=== PATIENT | female | born 1950 | race Caucasian/White ===

== ENCOUNTER 2019-07-08 20:55 | Emergency (ER) | payer MEDICARE ==
[~2019-07-08] VITALS: Ht 162 cm; Wt 74.8 kg
[2019-07-08 21:44] VITALS: BP 105/66
[2019-07-11] MEDS ORDERED: HEParin 1000 UNIT/ML (10ML VIAL) FOR BOLUS IV ONE (06:20)
[2019-07-11] MEDS ORDERED: morphine INJ 10 MG/ML 1ML (SYR OR VIAL) IVP STA (06:20)
[2019-07-11] MEDS ORDERED: HEParin DRIP 25000 UNIT/500ML 500 ML IV ONE (06:20)
--- NOTE | 2019-07-11 06:26 | ED Chest Pain ---
General Chief Complaint: Chest Pain Stated Complaint: CHEST PAIN Nursing Triage Note: PT COMPLAINING OF CHEST PAIN, LEFT JAW PAIN AND BILATERAL ARM HEAVINESS Nursing Sepsis Screen: No Definite Risk Source: patient, family History of Present Illness Date Seen by Provider: Jul 08, 2019 Time Seen by Provider: 20:55 Initial Comments 68-year-old female presenting with complaints of burning pain in both sides her chest going into her arms and into the left side of her jaw. This started around 8 PM or 8:15 PM tonight. She felt that it was indigestion but when it wasn't getting better she came into the emergency department. She denies taking any medications. She states that she would take some vitamins but that was all. She follows with Melissa Conway out of the [facility] clinic but used to follow with Dr. Jules. She had a similar episode about a week or 2 ago and it did get better with taking Tums. She denies any known history of cardiac disease. She does not have any known heart problems per family members either. Allergies and Home Medications Allergies Coded Allergies: No Known Drug Allergies (Unverified , 07/10/19) Patient Home Medication List Home Medication List Reviewed: Yes Review of Systems Review of Systems Constitutional: No chills, No fever EENTM: No Symptoms Reported Respiratory: Shortness of Air Cardiovascular: See HPI, Chest Pain, Lightheadedness Gastrointestinal: Denies Nausea Genitourinary: No Symptoms Reported Musculoskeletal: see HPI, other (pain and weakness going into both arms and her left jaw.) Skin: no symptoms reported Psychiatric/Neurological: No Symptoms Reported Past Poeecas-Wpadll-Rgvuku Hx Past Med/Social Hx: Reviewed Nursing Past Med/Soc Hx Patient Social History Alcohol Use: Denies Use Recreational Drug Use: No Smoking Status: Current Everyday Smoker Type Used: Cigarettes 2nd Hand Smoke Exposure: No Recent Foreign Travel: No Contact w/Someone Who Travel: No Recent Infectious Disease Expo: No Recent Hopitalizations: No Physical Abuse: No Sexual Abuse: No Mistreated: No Past Medical History Surgeries: Yes Hysterectomy Respiratory: Yes COPD Cardiac: No Neurological: No Genitourinary: No Gastrointestinal: No Musculoskeletal: No Endocrine: No HEENT: No Cancer: No Psychosocial: No Integumentary: No Blood Disorders: No Physical Exam Vital Signs Vital Signs - First Documented 07/08/19 20:55 Temp 36.2 Pulse 54 Resp 18 B/P (MAP) 144/81 (102) Pulse Ox 99 O2 Delivery Room Air Capillary Refill : Less Than 3 Seconds Height, Weight, BMI Height: '" Weight: lbs. oz. kg; 28.00 BMI Method: General Appearance: WD/WN, Mild Distress HEENT: Normal ENT Inspection, Pharynx Normal Neck: Normal Inspection, Non Tender, Supple; No Carotid Bruit Respiratory: Chest Non Tender, Lungs Clear, Normal Breath Sounds, No Accessory Muscle Use, No Respiratory Distress Cardiovascular: Regular Rate, Rhythm, Normal Peripheral Pulses Gastrointestinal: No Pulsatile Mass, Non Tender, Soft Extremity: Normal Range of Motion, Non Tender, No Calf Tenderness, No Pedal Edema Neurologic/Psychiatric: Alert, Oriented x3, No Motor/Sensory Deficits Skin: Cool, Diaphoresis, Pallor Progress/Results/Core Measures Results/Orders My Orders Orders - LEIGH ANN MARCOS MD Monitor-Rhythm Ecg Trace Only (07/10/19 21:47) Ekg Tracing (07/10/19 21:47) Ed Iv/Invasive Line Start (07/10/19 21:47) Morphine Injection (Morphine Injection (07/11/19 06:20) Aspirin Chewable Tablet (Baby Aspirin Ch (07/11/19 06:30) Ns Iv 1000 Ml (Sodium Chloride 0.9%) (07/11/19 06:30) Heparin Drip 38908 Unit/500ml (Heparin (07/11/19 06:20) Heparin (Bolus Per Protocol) (Heparin (B (07/11/19 06:20) Vital Signs/I&O 07/08/19 07/08/19 20:55 21:44 Temp 36.2 Pulse 54 60 Resp 18 16 B/P (MAP) 144/81 (102) 105/66 Pulse Ox 99 100 O2 Delivery Room Air Room Air Blood Pressure Mean: 102 Progress Progress Note #1: Time: 21:00 Progress Note Give aspirin and morphine to try and help with her pain. Contact cardiology for her STEMI seen on EKG. [facility] does not currently have any ICU beds available so family and patient request Eulalia Coyle for transfer to interventional cardiology. Progress Note #2: Progress Note Patient was complaining of some increased pain and did have lower blood pressure after medication treatment. This was after being given morphine and aspirin. She was given a liter bolus of fluid to try and help with her blood pressure and chest pain. The heparin drip was ordered and started of recommendations from Dr. Norman with cardiology from [facility]. A helicopter is on it's way [facility] Initial ECG Impression Date: Jul 08, 2019 Initial ECG Impression Time: 20:54 Initial ECG Rate: 52 Initial ECG Rhythm: S.Souleymane Initial ECG Comparisson: No Previous ECG Available Comment Sinus bradycardia with heart rate of 52 bpm. Inferior infarct with ST elevation in leads II, III, and F aVF. AL interval of 160 ms. QT interval 415 ms with a QT corrected interval of 386 ms. There is no prior tracing for comparison. Diagnostic Imaging Diagonstic Imaging: Xray Plain Films/CT/US/NM/MRI: chest Comments On my review of her 1 view chest x-ray she has no acute infiltrate or effusions. Reviewed: Reviewed by Me Departure Impression Primary Impression: STEMI (ST elevation myocardial infarction) Qualified Codes: I21.3 - ST elevation (STEMI) myocardial infarction of un specified site Additional Impressions: Chest pain Qualified Codes: R07.9 - Chest pain, unspecified General weakness Disposition: 02 XFER SHT-TRM HOSP Condition: Critical Transfer Transfer Reason: Exceeds level of care Time Spoke to Accepting Phy: 21:18 Transfer Progress Notes I spoke with Dr. Norman for interventional cardiology [facility]. He accepted the patient in transfer. He did request to have the patient started on heparin drip. Due to her low blood pressure I have not done any nitroglycerin for her. She was given aspirin and morphine when necessary for pain. Due to her low heart rate I have also not given her any beta blockers. Transfer Facility: [facility] Method of Transfer: Air Departure-Patient Inst. Referrals: NO,LOCAL PHYSICIAN (PCP/Family) Primary Care Physician LEIGH ANN MARCOS MD Jul 11, 2019 06:26
[2019-07-11] MEDS ORDERED: NS IV 1000 ML 1,000 ML IV SCH (06:30)
[2019-07-11] MEDS ORDERED: ASPIRIN 81 MG CHEW (CHILDREN'S ASA) PO ONE (06:30)
== END 2019-07-08 22:05 | disposition short-term general hospital (02) ==
LOC: ER FS 20:56
DX: I21.3 ST elevation (STEMI) myocardial infarction of unspecified site (principal); R53.1 Weakness; J44.9 Chronic obstructive pulmonary disease, unspecified; F17.210 Nicotine dependence, cigarettes, uncomplicated; Z90.710 Acquired absence of both cervix and uterus
CPT/HCPCS: 93041

== ENCOUNTER → 2021-11-16 | Outpatient (CLI) | payer MEDICARE ==
--- NOTE | 2021-11-16 13:02 | Diagnostic Imaging Report ---
EXAMINATION: Lumbosacral spine, 2 or 3 views. HISTORY: History of spinal surgery. COMPARISON: None available. FINDINGS: There is a levoconvex scoliotic deformity of the upper lumbar spine. Bilateral intrapedicular screws with intervening rods extend from L4 through L5 with an interbody device noted at this level as well. There is grade 1 retrolisthesis of L3 on L4 with the remaining alignment preserved. There is a compression fracture at L3, age indeterminate. The remaining vertebral body heights are maintained. Atherosclerotic disease is noted. IMPRESSION: 1. Post operative changes and degenerative disease with an age-indeterminate fracture at L3. Correlate clinically. If clinically indicated, an MRI could evaluate for edema. 2. Not mentioned in the body of the report, there is mild compression deformity at T12 which is age indeterminate and could be further evaluated with MRI as clinically indicated. Dictated by: Dictated on workstation # [id number]
== END ==
LOC: RAD FS 11:50
PROVIDERS: ATTEND Nurse Practitioner Family
DX: M47.816 Spondylosis without myelopathy or radiculopathy, lumbar region (principal); M48.56XA Collapsed vertebra, not elsewhere classified, lumbar region, initial encounter for fracture; M43.8X4 Other specified deforming dorsopathies, thoracic region; Z98.890 Other specified postprocedural states
CPT/HCPCS: 72100

== ENCOUNTER 2023-03-18 10:36 | Emergency (ER) | payer MEDICARE ==
[2023-03-18 10:55] LABS: BASOPHILS % (AUTO) 0 % (0-10); EOSINOPHILS # (AUTO) 0.2 10^3/uL (0.0-0.3); EOSINOPHILS % (AUTO) 2 % (0-10); HEMATOCRIT 41 % (35-52); HEMOGLOBIN 13.7 g/dL (11.5-16.0); LYMPHOCYTES % (AUTO) 41 % (12-44); MEAN CORPUSCULAR HEMOGLOBIN 30 pg (25-34); MEAN CORPUSCULAR HGB CONC 34 g/dL (32-36); MEAN CORPUSCULAR VOLUME 90 fL (80-99); MEAN PLATELET VOLUME 10.4 fL (9.0-12.2); MONOCYTES # (AUTO) 0.6 10^3/uL (0.0-1.0); MONOCYTES % (AUTO) 8 % (0-12); NEUTROPHILS # (AUTO) 3.6 10^3/uL (1.8-7.8); NEUTROPHILS % (AUTO) 48 % (42-75); PLATELET COUNT 194 10^3/uL (130-400); WHITE BLOOD COUNT 7.4 10^3/uL (4.3-11.0)
--- NOTE | 2023-03-18 11:04 | ED Cardiac General ---
History of Present Illness General Chief Complaint: Cardiac/General Problems Stated Complaint: ARRHYTHMIA Source: patient Exam Limitations: no limitations History of Present Illness Date Seen by Provider: Mar 18, 2023 Time Seen by Provider: 10:47 Initial Comments 72-year-old female presents to the emergency department today from the urgent care where she was found to be in atrial fibrillation. She states for the last day or so she has had fluttering in her heart. She also describes some pressure in her jaw bilaterally. She states she has had "jaw issues" for couple months now. This is described as pressure on and off and seemingly a spasm at night but does allow her to get much sleep. Regarding the fluttering in her heart and she states that she has had it off and on very fleeting but today it has not gone away. She denies any chest pain. No shortness of breath. No dizziness or lightheadedness. No abdominal pain or changes in bowel or bladder habits. No recent illnesses. Does have a remote history of myocardial infarction and has a cardiac stent. She is on Plavix. All other systems reviewed and negative except documented per HPI. Voice recognition software was used to help create this chart ASA po [employer]: No Allergies and Home Medications Allergies Coded Allergies: No Known Drug Allergies (Unverified , 07/10/19) Patient Home Medication List Home Medication List Reviewed: Yes Apixaban (Eliquis) 5 Mg Tablet, 5 MG PO BID Prescribed by: BHARTI POND MD on 03/18/23 9174 Last Action: New Order Review of Systems Review of Systems Constitutional: see HPI Past Zhfrywy-Uivohc-Clpcux Hx Patient Social History Tobacco Use?: Yes Tobacco type used: Cigarettes Smoking Status: Current Everyday Smoker Use of E-Cig and/or Vaping dev: No Substance use?: No Alcohol Use?: No Pt feels they are or have been: No Immunizations Up To Date Influenza Vaccine Up-to-Date: No; Not Current First/Initial COVID19 Vaccinat: DENIES Past Medical History Surgery/Hospitalization HX: HTN; High Cholesterol; COPD; MA; Cardiac stents; Hysterectomy; back surgery Surgeries: Yes Hysterectomy Respiratory: Yes COPD Cardiac: No Neurological: No Genitourinary: No Gastrointestinal: No Musculoskeletal: No Endocrine: No HEENT: No Cancer: No Psychosocial: No Integumentary: No Blood Disorders: No Physical Exam Vital Signs Vital Signs - First Documented 03/18/23 10:37 Temp 36.0 Pulse 114 Resp 16 B/P (MAP) 145/85 (105) Pulse Ox 97 O2 Delivery Room Air Capillary Refill : Less Than 3 Seconds Height, Weight, BMI Height: '" Weight: lbs. oz. kg; 28.00 BMI Method: General Appearance: No Apparent Distress, WD/WN HEENT: Normal ENT Inspection, Pharynx Normal Neck: Full Range of Motion, Normal Inspection, Non Tender, Supple Respiratory: Chest Non Tender, Lungs Clear, Normal Breath Sounds, No Accessory Muscle Use, No Respiratory Distress Cardiovascular: No Murmur, Normal Peripheral Pulses, Irregularly Irregular, Tachycardia Gastrointestinal: Normal Bowel Sounds, No Organomegaly, Non Tender, Soft Extremity: Normal Capillary Refill, Normal Inspection, Normal Range of Motion, Non Tender, No Calf Tenderness, No Pedal Edema Neurologic/Psychiatric: Alert, Oriented x3, No Motor/Sensory Deficits Skin: Normal Color, Warm/Dry Progress/Results/Core Measures Results/Orders Lab Results Laboratory Tests Test 03/18/23 10:45 Range/Units White Blood Count 7.4 4.3-11.0 10^3/uL Red Blood Count 4.56 3.80-5.11 10^6/uL Hemoglobin 13.7 11.5-16.0 g/dL Hematocrit 41 35-52 % Mean Corpuscular Volume 90 80-99 fL Mean Corpuscular Hemoglobin 30 25-34 pg Mean Corpuscular Hemoglobin Concent 34 32-36 g/dL Red Cell Distribution Width 16.3 H 10.0-14.5 % Platelet Count 194 130-400 10^3/uL Mean Platelet Volume 10.4 9.0-12.2 fL Immature Granulocyte % (Auto) 0 % Neutrophils (%) (Auto) 48 42-75 % Lymphocytes (%) (Auto) 41 12-44 % Monocytes (%) (Auto) 8 0-12 % Eosinophils (%) (Auto) 2 0-10 % Basophils (%) (Auto) 0 0-10 % Neutrophils # (Auto) 3.6 1.8-7.8 10^3/uL Lymphocytes # (Auto) 3.0 1.0-4.0 10^3/uL Monocytes # (Auto) 0.6 0.0-1.0 10^3/uL Eosinophils # (Auto) 0.2 0.0-0.3 10^3/uL Basophils # (Auto) 0.0 0.0-0.1 10^3/uL Immature Granulocyte # (Auto) 0.0 0.0-0.1 10^3/uL Sodium Level 137 135-145 MMOL/L Potassium Level 4.2 3.6-5.0 MMOL/L Chloride Level 101 98-107 MMOL/L Carbon Dioxide Level 27 21-32 MMOL/L Anion Gap 9 5-14 MMOL/L Blood Urea Nitrogen 10 7-18 MG/DL Creatinine 0.65 0.60-1.30 MG/DL Estimat Glomerular Filtration Rate 94 BUN/Creatinine Ratio 15 Glucose Level 108 H 70-105 MG/DL Calcium Level 9.6 8.5-10.1 MG/DL Corrected Calcium 9.2 8.5-10.1 MG/DL Magnesium Level 2.0 1.6-2.4 MG/DL Total Bilirubin 0.6 0.1-1.0 MG/DL Aspartate Amino Transf (AST/SGOT) 29 5-34 U/L Alanine Aminotransferase (ALT/SGPT) 24 0-55 U/L Alkaline Phosphatase 97 40-136 U/L Troponin I < 0.30 <0.30 NG/ML Total Protein 7.0 6.4-8.2 GM/DL Albumin 4.5 3.2-4.5 GM/DL My Orders Orders - BHARTI POND DO Cbc With Automated Diff (03/18/23 10:50) Comprehensive Metabolic Panel (03/18/23 10:50) Troponin I Fs (03/18/23 10:50) Chest 1 View Ap/Pa Only (03/18/23 10:50) Magnesium (03/18/23 10:50) Diltiazem Injection (Cardizem Injection) (03/18/23 11:15) Apixaban Tablet (Eliquis Tablet) (03/18/23 11:45) Medications Given in ED Current Medications Medications Dose Ordered Sig/Kevin Route Start Time Stop Time Status Last Admin Dose Admin Apixaban 5 mg ONCE ONCE PO 03/18/23 11:45 03/18/23 11:46 DC 03/18/23 11:51 5 MG Diltiazem HCl 10 mg ONCE ONCE IVP 03/18/23 11:15 03/18/23 11:16 DC 03/18/23 11:10 10 MG Vital Signs/I&O 03/18/23 03/18/23 03/18/23 10:37 11:10 11:51 Temp 36.0 36.0 Pulse 114 100 81 Resp 16 16 B/P (MAP) 145/85 (105) 120/78 106/63 Pulse Ox 97 98 O2 Delivery Room Air Room Air Comment Atrial fibrillation with a rate of 107 bpm. Normal intervals outside of CO interval. Normal axis. No ST or T wave abnormalities. No ectopy. Departure Communication (Admissions) Patient is hemodynamically stable. Differential diagnosis includes ACS, electrolyte abnormality, anemia, paroxysmal A-fib. Given her history of intermittent palpitations she is likely in this for some time. No indication for cardioversion. Given her jaw symptoms ACS is certainly a consideration however she has had the symptoms for 2 months and states this is nothing like the pain that she had with her myocardial infarction so I doubt really that she is having any ACS. She has a nonischemic EKG. Labs are pending at this time. She is hemodynamically stable with normal blood pressures. Rates intermittently bouncing up to around 120-130. 1140: Patient received a single IV bolus of Cardizem 10 mg. This improved her rates from 70 to 90s. Her blood pressures remained stable. She is not having any dizziness lightheadedness. No evidence for ACS at this time. I spoke with Dr. Morales. The patient does have reliable follow-up with her certified histologic technician next month. He requests to start her on Eliquis and believes she may be discharged home safely. I agree with this assessment at this time. She is given strict return precautions for dizziness lightheadedness chest pain or any other concerning symptoms. She states understanding. She does seem reliable and is likely to return if necessary. But that she will be discharged home in stable condition. Impression Primary Impression: Atrial fibrillation with RVR Disposition: 01 HOME, SELF-CARE Condition: Stable Departure-Patient Inst. Referrals: [facility] [place] (PCP/Family) Primary Care Physician Patient Instructions: Atrial fibrillation Add. Discharge Instructions: You are seen in the emergency department today for palpitations. As discussed you are in a rhythm called atrial fibrillation. This does increase your risk for stroke over time so you were started on a blood thinning medication called Eliquis. Take this as prescribed. This will increase your risk of bleeding. If you hit your head or fall down you likely need to be checked out so that we can ensure that there is no bleeding. You will likely bruise more easily as well. Follow-up with your heart doctor in the next couple of weeks. Return to the emergency department she develop any dizziness, lightheadedness, chest pain or if your symptoms change in any way otherwise concerning to you. All discharge instructions reviewed with patient and/or family. Voiced understanding. Scripts Apixaban (Eliquis) 5 Mg Tablet 5 MG PO BID for 30 Days, #60 TAB TAKE 2 TABLETS BID X 7 DAYS, THEN 1 TABLET BID Prov: BHARTI POND DO 03/18/23 BHARTI POND DO Mar 18, 2023 11:04
[2023-03-18 11:07] LABS: ALANINE AMINOTRANSFERASE 24 U/L (0-55); ALBUMIN 4.5 GM/DL (3.2-4.5); ALKALINE PHOSPHATASE 97 U/L (40-136); BILIRUBIN,TOTAL 0.6 MG/DL (0.1-1.0); BUN/CREATININE RATIO 15; CALCIUM 9.6 MG/DL (8.5-10.1); CARBON DIOXIDE 27 MMOL/L (21-32); CHLORIDE 101 MMOL/L (98-107); CREATININE SERUM 0.65 MG/DL (0.60-1.30); GFR ESTIMATED 94; GLUCOSE 108 MG/DL (70-105); POTASSIUM 4.2 MMOL/L (3.6-5.0); SODIUM 137 MMOL/L (135-145)
--- NOTE | 2023-03-18 11:13 | Diagnostic Imaging Report ---
INDICATION: Atrial fibrillation. COMPARISON: Exam is compared with radiographs 07/08/2019. FINDINGS: The lungs are clear although hyperexpanded. No failure, pattern, effusion, or pneumothorax. Some scattered benign calcified granulomata are chronic. IMPRESSION: Stable chest. Dictated by: Dictated on workstation # [id number]
[2023-03-18] MEDS ORDERED: APIX5TAB PO (11:44)
[2023-03-18] MEDS ORDERED: APIXABAN 5 MG (ELIQUIS) TABLET PO ONE (11:45)
[2023-03-18 11:51] VITALS: BP 106/63
== END 2023-03-18 11:51 | disposition home or self-care (01) ==
LOC: EDUNIT# 10:36 → ER FS 10:37
DX: I48.91 Unspecified atrial fibrillation (principal); I25.2 Old myocardial infarction; F17.210 Nicotine dependence, cigarettes, uncomplicated; Z95.5 Presence of coronary angioplasty implant and graft; Z79.02 Long term (current) use of antithrombotics/antiplatelets; Z28.310 Unvaccinated for COVID-19
CPT/HCPCS: 36415; 71045; 80053; 83735; 84484; 85025